=== PATIENT | male | born 1995 | race Caucasian/White ===

== ENCOUNTER 2018-04-11 18:12 | Emergency (ER) | payer OTHER ==
--- NOTE | 2018-04-11 19:31 | ER Document Report ---
HPI - HPI Patient complains to provider of: FINGER LAC Time Seen by Provider: 04/11/18 19:27 Onset: Just prior to arrival Onset/Duration: Sudden Quality of pain: Achy Severity: Moderate Pain Level: 3 - REPRODUCTIVE Reproductive: DENIES: : Past Medical History - Past Medical History Cardiac Medical History: Denies: Hx Coronary Artery Disease, Hx Heart Attack, Hx Hypertension Pulmonary Medical History: Denies: Hx Asthma, Hx Bronchitis, Hx COPD, Hx Pneumonia Neurological Medical History: Denies: Hx Cerebrovascular Accident, Hx Seizures GI Medical History: Musculoskeletal Medical History: Denies Hx Arthritis Infectious Medical History: Past Surgical History: Denies: Hx Pacemaker - Immunizations Hx Diphtheria, Pertussis, Tetanus Vaccination: Yes Vertical Provider Document - INFECTION CONTROL TRAVEL OUTSIDE OF THE [place] IN LAST 30 DAYS: No Course - Vital Signs Vital signs: Temp Pulse Resp BP Pulse Ox 97.4 F 94 18 144/74 H 100 04/11/18 18:18 04/11/18 18:18 04/11/18 18:18 04/11/18 18:18 04/11/18 18:18 Discharge - Discharge Referrals: LOCALMD,NO [Primary Care Provider] - Follow up as needed
--- NOTE | 2018-04-11 19:51 | RADIOLOGY REPORT (SQ) ---
EXAM DESCRIPTION: FINGER LEFT COMPLETED DATE/TIME: 04/11/2018 7:37 pm REASON FOR STUDY: FINGER LAC COMPARISON: None. NUMBER OF VIEWS: Three views. TECHNIQUE: AP, lateral, and oblique images acquired of the left second finger. LIMITATIONS: None. FINDINGS: MINERALIZATION: Normal. BONES: No acute fracture or dislocation. No worrisome bone lesions. SOFT TISSUES: Soft tissue defect of the tuft. OTHER: No other significant finding. IMPRESSION: No acute fracture. TECHNICAL DOCUMENTATION: JOB ID: [id number] [employer]- All Rights Reserved Reading location - IP/workstation name: [email or web address]
--- NOTE | 2018-04-11 19:54 | ER Document Report ---
ED Medical Screen (RME) - General Chief Complaint: Laceration Stated Complaint: FINGER LACERATION Time Seen by Provider: 04/11/18 19:27 Mode of Arrival: Ambulatory Information source: Patient Notes: Presents emergency department with complaints of left index finger laceration. He reports he put his hand in a mixture and cut his finger. Reports tetanus is up-to-date. Finger is actively bleeding several lacerations noted TRAVEL OUTSIDE OF THE [place] IN LAST 30 DAYS: No - Related Data Allergies/Adverse Reactions: amoxicillin [Amoxicillin] Allergy (Verified 02/26/12 19:21) Past Medical History - Past Medical History Cardiac Medical History: Denies: Hx Coronary Artery Disease, Hx Heart Attack, Hx Hypertension Pulmonary Medical History: Denies: Hx Asthma, Hx Bronchitis, Hx COPD, Hx Pneumonia Neurological Medical History: Denies: Hx Cerebrovascular Accident, Hx Seizures GI Medical History: Musculoskeltal Medical History: Denies Hx Arthritis Infectious Medical History: Past Surgical History: Denies: Hx Pacemaker - Immunizations Hx Diphtheria, Pertussis, Tetanus Vaccination: Yes Physical Exam - Vital signs Vitals: Temp Pulse Resp BP Pulse Ox 97.4 F 94 18 144/74 H 100 04/11/18 18:18 04/11/18 18:18 04/11/18 18:18 04/11/18 18:18 04/11/18 18:18 Course - Vital Signs Vital signs: Temp Pulse Resp BP Pulse Ox 97.4 F 94 18 144/74 H 100 04/11/18 18:18 04/11/18 18:18 04/11/18 18:18 04/11/18 18:18 04/11/18 18:18 Doctor's Discharge - Discharge Referrals: CHINEDUNO [Primary Care Provider] - Follow up as needed
[2018-04-11] MEDS ORDERED: LIDOCAINE 1% INJ-PF (10 MG/ML) 30 ML SDV INJ ONE (22:18)
--- NOTE | 2018-04-11 23:22 | ER Document Report ---
ED Hand/Wrist Injury - General Chief Complaint: Laceration Stated Complaint: FINGER LACERATION Time Seen by Provider: 04/11/18 19:27 Mode of Arrival: Ambulatory Information source: Patient Notes: Patient is a 22-year-old male comes emergency room coming by his father with complaint of left index finger pad laceration. Patient admits to "dominant". He states that he was looking at the fan blade of a commercial stripper he wanted to know what it would feel like if it turned it on and he thought that it was not attached tightly. It was attached tightly and patient mangled the pad of his left index finger. It was a quick cut and did not decrease capitate or the globe the finger and did not amputate the finger. It just slapped the bed of the pad of the index finger a couple of times causing multiple different lacerations. He denies any other injuries at this time. TRAVEL OUTSIDE OF THE [place] IN LAST 30 DAYS: No - HPI Injury to: Index finger Onset: Just prior to arrival Where: Home Timing: Constant Quality of pain: Sharp, Stabbing Pain Level: 3 Context: Laceration - Related Data Allergies/Adverse Reactions: amoxicillin [Amoxicillin] Allergy (Verified 02/26/12 19:21) Past Medical History - General Information source: Patient - Social History Smoking Status: Never Smoker Cigarette use (# per day): No Chew tobacco use (# tins/day): No Smoking Education Provided: No Frequency of alcohol use: None Drug Abuse: None Lives with: Family Family History: Reviewed & Not Pertinent Patient has suicidal ideation: No Patient has homicidal ideation: No - Past Medical History Cardiac Medical History: Denies: Hx Coronary Artery Disease, Hx Heart Attack, Hx Hypertension Pulmonary Medical History: Denies: Hx Asthma, Hx Bronchitis, Hx COPD, Hx Pneumonia Neurological Medical History: Denies: Hx Cerebrovascular Accident, Hx Seizures Renal/ Medical History: Denies: Hx Peritoneal Dialysis GI Medical History: Musculoskeletal Medical History: Denies Hx Arthritis Infectious Medical History: Past Surgical History: Denies: Hx Pacemaker - Immunizations Hx Diphtheria, Pertussis, Tetanus Vaccination: Yes Review of Systems - Review of Systems Constitutional: No symptoms reported EENT: No symptoms reported Cardiovascular: No symptoms reported Respiratory: No symptoms reported Gastrointestinal: No symptoms reported Genitourinary: No symptoms reported Male Genitourinary: No symptoms reported Musculoskeletal: No symptoms reported Skin: See HPI, Other - Laceration Hematologic/Lymphatic: No symptoms reported Neurological/Psychological: No symptoms reported Physical Exam - Vital signs Vitals: Temp Pulse Resp BP Pulse Ox 97.4 F 94 18 144/74 H 100 04/11/18 18:18 04/11/18 18:18 04/11/18 18:18 04/11/18 18:18 04/11/18 18:18 Interpretation: Hypertensive - Notes Notes: PHYSICAL EXAMINATION: GENERAL: Well-appearing, well-nourished and in no acute distress. HEAD: Atraumatic, normocephalic. NECK: Normal range of motion, supple without lymphadenopathy LUNGS: Breath sounds clear to auscultation bilaterally and equal. No wheezes rales or rhonchi. HEART: Regular rate and rhythm without murmurs Musculoskeletal: Physical examination patient's prime concern is his left index finger. Examination of the finger shows that the only damage is done to the pad. The pad itself is multiple lacerations to the area is almost impossible to give you a length at this time but approximately 2-1/2-3 cm worth of repair. There is some heavy bleeding that was ongoing for quite a while until pressure was applied for period of time. Patient has good cap refill in the distal nailbed of the finger still. He has good sensation on the distal tip of the finger. He has good flexion extension against resistance of the distal tip. Th ere is no involvement of the flexor tendon of the finger. NEUROLOGICAL: Normal speech, normal gait. Normal sensory, motor exams PSYCH: Normal mood, normal affect. SKIN: See musculoskeletal above. The length is in good estimation of approximately 2-1/2-3 cm. The skin is lacerated in multiple different directions but was able to be pulled together on suturing. It was down into the vascular bed. Not down as far as bone. And again no tendon involvement noted. Course - Re-evaluation Re-evalutation: 04/11/18 23:22 Patient's length of stay here was exceedingly long because of the other patients ahead of him. It took more time than anticipated to fix his mangled finger pad. We did extensive cleaning and I applied multiple sutures to include a total of 6 to stop the bleeding and approximate all of the areas. It actually turned out well. I am placing him on antibiotics prophylactically for any type of infection. He will have them removed in anywhere from 8-10 days. Have been instructed to return to ER for any complications or concerns. - Vital Signs Vital signs: Temp Pulse Resp BP Pulse Ox 97.4 F 94 18 144/74 H 100 04/11/18 18:18 04/11/18 18:18 04/11/18 18:18 04/11/18 18:18 04/11/18 18:18 Procedures - Immobilization Left Anterior Finger 2nd digit Time completed: 23:25 Pre-Proc Neuro Vasc Exam: Normal Immobilizer type: Finger splint (Static) Performed by: RN Post-Proc Neuro Vasc Exam: Normal, Unchanged from pre-exam Alignment checked and good: Yes - Laceration/Wound Repair Left Finger 2nd digit Time completed: 23:23 Wound length (cm): 3 Wound's Depth, Shape: Irregular, Flap, Stellate, Contused tissue Laceration pre-procedure: Sterile PPE donned Anesthetic type: 1% Lidocaine Volume Anesthetic (mLs): 3 Wound explored: Clean, No foreign body removed Irrigated w/ Saline (mLs): 1,000 Wound Debrided: Extensive Wound Repaired With: Sutures Suture Size/Type: 4:0, Prolene Number of Sutures: 6 Layer Closure?: No Post-procedure wound care: Sterile dressing applied, Splint applied Post-procedure NV exam normal: Yes Complications: No Discharge - Discharge Clinical Impression: Finger laceration Qualifiers: Encounter type: initial encounter Finger: index finger Damage to nail status: without damage Foreign body presence: without foreign body Laterality: left Qualified Code(s): S61.211A - Laceration without foreign body of left index finger without damage to nail, initial encounter Condition: Stable Disposition: HOME, SELF-CARE Instructions: Antibiotic Ointment Protection ([facility]), Oral Narcotic Medication ([facility]), Laceration Care ([facility]), Soap Cleansing ([facility]) Additional Instructions: LACERATION CARE: Your laceration has been sutured to keep the skin edges aligned during healing. The time of suture removal depends on the nature and location of your cut. Please follow the care instructions the doctor has outlined for you and return for further care, according to the schedule you've been given. Keep the wound and dressing clean. Unless you were told otherwise, you may shower daily, blotting the wound dry with a clean, unused towel. At other times, If the dressing gets wet or blood soaked, remove it and blot the wound dry, then reapply a new dressing. Unless you were instructed otherwise, dressings should be changed at least daily. If any signs of infection occur (swelling, redness, drainage, increasing tenderness, red streaks, tender lumps in the armpit or groin above the laceration, or fever), see the doctor immediately. SOAP CLEANSING: Gently wash the wound daily using a mild soap (like Ivory, Phisoderm, Neutrogena). Use warm water, rubbing gently until all debris, ooze, and crusting have been washed from the wound. Allow to dry briefly (about 10 minutes) after cleaning. Repeat this cleansing at least three times a day for the first two days and then once or twice a day. ANTIBIOTIC OINTMENT PROTECTION: Your wounds are such that dressing them is not practical or optional. After cleansing, you should apply a thin coating of antibiotic ointment (Bacitracin, not Neosporin) to the wounds at least three times daily. This lessens infection risk, and may decrease the amount of scarring. Use a q-tip or dull butter knife, not your finger, to apply this ointment. Any debris or ooze which builds up in the ointment should be gently rubbed off with a sterile gauze pad. Harder crusting may need to be gently scrubbed off with a clean wash cloth with soap and warm water, perhaps applying a warm, wet wash cloth to the wound for ten minutes first. Development of redness, severe itching, or blistering may mean allergy to the ointment. See the doctor. PROPHYLACTIC ANTIBIOTIC: The antibiotics which have been prescribed are designed to decrease the risk of infection. Only certain types of wounds benefit from this -- the typical cut, scrape, or burn DOES NOT require antibiotics. Of course, infection can still occur despite the use of prophylactic antibiotics. Your wound will heal with less chance of an infectious complication if you take the medication as directed. The most important dose is the FIRST dose, so don't delay filling the prescription! ORAL NARCOTIC MEDICATION: You have been given a prescription for pain control. This medication is a narcotic. It's best taken with food, as nausea can result if taken on an empty stomach. Don't operate machinery or drive within six hours of taking this medication. Do not combine this medicine with alcohol, or with any medication which can cause sedation (such as cold tablets or sleeping pills) unless you get permission from the physician. Narcotics tend to cause constipation. If possible, drink plenty of fluids and eat a diet high in fiber and fruits. FOLLOW-UP CARE: Please return in days for an infection check and dressing change. Your sutures should be removed in 8-10____ days. To facilitate a timely removal of your sutures, you may return to the Emergency [facility] at [facility]. You do not need to call for an appointment, but the best time to come in for suture removal is early in the morning. If you have been referred to another physician for follow-up care, call that physicians office for an appointment as you were instructed. If you experience a significant change in your laceration, or if you are concerned there may be an infection (swelling, redness, drainage, increasing tenderness, red streaks, tender lumps in the armpit or groin above the laceration, or fever), return to the Emergency Department immediately re-evaluation. Home and rest. Medication as prescribed. Ibuprofen will help with inflammation and Discomfort as well. As we have indicated keep this clean and dry as possible for 48 hours change dressing at least twice a day and when dirty or wet. Take all of the antibiotics. Suture removal as stated should be done in 8-10 days maximum of 14 at worst and. Also as I am instructed you if it does not appear to be healing appropriately for whatever reason that you do not think it looks good come back and let us take a look at it. I have written you for a couple of days of pain medication primarily for sleep take it cautiously. Should you have any other concerns return to ER for a recheck. Use of the Prescriptions: Hydrocodone/Acetaminophen [[place] 5-325 mg Tablet] 1 tab PO Q4 PRN #8 tablet PRN Reason: Sulfamethoxazole/Trimethoprim [Bactrim Ds Tablet] 1 each PO BID 7 Days #14 table t Referrals: LOCALMD,NO [NO LOCAL MD] - Follow up as needed
[2018-04-12 02:46] VITALS: BP 129/89
== END 2018-04-11 23:30 | disposition home or self-care (01) ==
LOC: ER 18:12
DX: S61.211A Laceration without foreign body of left index finger without damage to nail, initial encounter (principal); W26.8XXA Contact with other sharp object(s), not elsewhere classified, initial encounter; Y93.89 Activity, other specified; Y92.009 Unspecified place in unspecified non-institutional (private) residence as the place of occurrence of the external cause; Z88.0 Allergy status to penicillin
CPT/HCPCS: 99283; 73140; 12002; J3490